=== PATIENT | male | born 1995 | race Caucasian/White ===

== ENCOUNTER 2022-04-15 12:45 | Emergency (ER) | payer OTHER, SELFPAY ==
[2022-04-15 14:29] LABS: Urine Blood Negative (Negative); Urine Glucose Negative (Negative); Urine Protein Negative (Negative); Urine Specific Gravity >=1.030 (1.005-1.030); Urine pH 5.5 (5.0-7.0)
--- NOTE | 2022-04-15 14:30 | EDPHYS ---
Physician Documentation [facility] Name: Hansel Kaba Age: 27 yrs Sex: Male : 1995 Arrival Date: 04/15/2022 Time: 12:49 Bed 10 Private MD: ED Physician Elliott Larose HPI: 04/15 14:30 This 27 yrs old Male presents to ER via Ambulatory with complaints of Back Pain. snw 14:30 The patient presents with pain that is acute, with no known mechanism of injury. The snw symptoms are located in the low back. Onset: The symptoms/episode began/occurred suddenly, 3 day(s) ago, and became persistent. The pain radiates to the right leg and left leg. Associated signs and symptoms: Pertinent positives: headache, low grade temp. Severity of symptoms: At their worst the symptoms were moderate. The patient has not experienced similar symptoms in the past. The patient has been recently seen by a physician: with similar presenting complaints. Historical: - Allergies: 13:13 No Known Allergies; eh3 - Home Meds: 13:13 None [Active]; eh3 - PMHx: 13:13 None; eh3 - PSHx: 13:13 None; eh3 - Immunization history:: Adult Immunizations up to date. - Social history:: Smoking status: Patient reports the use of cigarette tobacco products, smokes one pack cigarettes per day. Patient/guardian denies using alcohol, street drugs. ROS: 14:27 Constitutional: Negative for fever, chills, and weight loss. snw 14:27 Eyes: Negative for injury, pain, redness, and discharge, ENT: Negative for injury, pain, and discharge, Neck: Negative for injury, pain, and swelling, Cardiovascular: Negative for chest pain, palpitations, and edema, Respiratory: Negative for shortness of breath, cough, wheezing, and pleuritic chest pain, Abdomen/GI: Negative for abdominal pain, nausea, vomiting, diarrhea, and constipation. 14:27 : Negative for injury, bleeding, discharge, and swelling, MS/Extremity: Negative for injury and deformity, Skin: Negative for injury, rash, and discoloration, Neuro: Negative for headache, weakness, numbness, tingling, and seizure, Psych: Negative for depression, anxiety, suicide ideation, homicidal ideation, and hallucinations. 14:27 Constitutional: Positive for body aches, fever, malaise. 14:27 Back: Positive for pain at rest, pain with movement, of the left low back, left mid back, right mid back and right low back. Exam: 14:27 Constitutional: This is a well developed, well nourished patient who is awake, alert, snw and in no acute distress. Head/Face: Normocephalic, atraumatic. Eyes: Pupils equal round and reactive to light, extra-ocular motions intact. Lids and lashes normal. Conjunctiva and sclera are non-icteric and not injected. Cornea within normal limits. Periorbital areas with no swelling, redness, or edema. ENT: Nares patent. No nasal discharge, no septal abnormalities noted. Tympanic membranes are normal and external auditory canals are clear. Oropharynx with no redness, swelling, or masses, exudates, or evidence of obstruction, uvula midline. Mucous membranes moist. Neck: Trachea midline, no thyromegaly or masses palpated, and no cervical lymphadenopathy. Supple, full range of motion without nuchal rigidity, or vertebral point tenderness. No Meningismus. Chest/axilla: Normal chest wall appearance and motion. Nontender with no deformity. No lesions are appreciated. Cardiovascular: Regular rate and rhythm with a normal S1 and S2. No gallops, murmurs, or rubs. Normal PMI, no JVD. No pulse deficits. Respiratory: Lungs have equal breath sounds bilaterally, clear to auscultation and percussion. No rales, rhonchi or wheezes noted. No increased work of breathing, no retractions or nasal flaring. Abdomen/GI: Soft, non-tender, with normal bowel sounds. No distension or tympany. No guarding or rebound. No evidence of tenderness throughout. Back: No spinal tenderness. No costovertebral tenderness. Full range of motion. Skin: Warm, dry with normal turgor. Normal color with no rashes, no lesions, and no evidence of cellulitis. MS/ Extremity: Pulses equal, no cyanosis. Neurovascular intact. Full, normal range of motion. Neuro: Awake and alert, GCS 15, oriented to person, place, time, and situation. Cranial nerves II-XII grossly intact. Motor strength 5/5 in all extremities. Sensory grossly intact. Cerebellar exam normal. Normal gait. Vital Signs: 13:08 BP 129 / 96; Pulse 68; Resp 16; Temp 99.4; Pulse Ox 99% on R/A; Weight 115.67 kg; ld1 Height 5 ft. 11 in. (180.34 cm); Pain 0/10; 13:08 Body Mass Index 35.56 (115.67 kg, 180.34 cm) ld1 MDM: 14:12 Patient medically screened. snw 14:30 Data reviewed: vital signs, nurses notes. Counseling: I had a detailed discussion with snw the patient and/or guardian regarding: the historical points, exam findings, and any diagnostic results supporting the discharge/admit diagnosis, the presence of at least one elevated blood pressure reading (>120/80) during this emergency department visit, lab results. 04/15 13:58 Order name: SARS-COV-2 RT PCR (Document "Date of Onset" if Symptomatic) snw 04/15 14:30 Order name: Urine Dipstick-Ancillary; Complete Time: 14:32 EDMS 04/15 13:58 Order name: Urine Dipstick-Ancillary (obtain specimen); Complete Time: 14:28 snw Administered Medications: No medications were administered Disposition: 04/16 09:04 Co-signature as Attending Physician, Elliott Larose MD I agree with the assessment and kdr plan of care. Disposition Summary: 04/15/22 14:29 Discharge Ordered Location: Home snw Condition: Stable snw Diagnosis - Low back pain snw - Headache snw Followup: snw - With: Emergency Department - When: As needed - Reason: Worsening of condition Followup: snw - With: Private Physician - When: 1 - 2 days - Reason: Recheck today's complaints, Continuance of care, Re-evaluation by your physician Discharge Instructions: - Discharge Summary Sheet snw - General Headache Without Cause snw - Hypertension, Adult snw - Musculoskeletal Pain snw - Rehydration, Adult snw - Heat Therapy snw - Form - Blood Pressure Record Sheet snw - How to Take Your Blood Pressure snw - Form - Excuse from Work, School, or Physical Activity snw Forms: - Medication Reconciliation Form snw - Thank You Letter snw - Work release form snw - Antibiotic Education snw - Prescription Opioid Use snw Prescriptions: - Diclofenac Sodium 75 mg Oral Tablet Sustained Release - take 1 tablet by ORAL route 2 times per day; 30 tablet; Refills: 0, Product snw Selection Permitted - orphenadrine citrate 100 mg Oral Tablet Sustained Release - take 1 tablet by ORAL route 2 times per day As needed; 20 tablet; Refills: 0, snw Product Selection Permitted Signatures: Dispatcher [employer] Elliott Austin MD MD kdr Waters, Shelly, FNP-Frannie JACKMAN-Abby Ulloa [facility]
--- NOTE | 2022-04-15 14:30 | ER ---
Nurse's Notes [facility] Name: Hansel Kaba Age: 27 yrs Sex: Male : 1995 Arrival Date: 04/15/2022 Time: 12:49 Bed 10 Private MD: Diagnosis: Low back pain;Headache Presentation: 04/15 13:08 Chief complaint: Patient states: H/A and lower back radiating to hips and knees, ld1 started Tuesday. Coronavirus screen: Vaccine status: Patient reports being unvaccinated. Ebola Screen: No symptoms or risks identified at this time. Initial Sepsis Screen: Does the patient meet any 2 criteria? No. Patient's initial sepsis screen is negative. Does the patient have a suspected source of infection? No. Patient's initial sepsis screen is negative. Risk Assessment: Do you want to hurt yourself or someone else? Patient reports no desire to harm self or others. Onset of symptoms was April 12, 2022. 13:08 Method Of Arrival: Ambulatory ld1 13:08 Acuity: AMANDA 3 ld1 Triage Assessment: 13:13 General: Appears in no apparent distress. comfortable, Behavior is calm, cooperative, eh3 appropriate for age. Pain: Complains of pain in top of head, right eye, left eye, left side of the back of head and right side of the back of head Pain does not radiate. Pain currently is 4 out of 10 on a pain scale. at worst was 10 out of 10 on a pain scale. Quality of pain is described as aching, Pain began 4 days ago Is continuous. Neuro: Level of Consciousness is awake, alert, obeys commands, Oriented to person, place, time, situation. Cardiovascular: Capillary refill < 3 seconds Patient's skin is warm and dry. Respiratory: Airway is patent Respiratory effort is even, unlabored. Musculoskeletal: Capillary refill < 3 seconds, Range of motion: intact in all extremities. Historical: - Allergies: 13:13 No Known Allergies; eh3 - Home Meds: 13:13 None [Active]; eh3 - PMHx: 13:13 None; eh3 - PSHx: 13:13 None; eh3 - Immunization history:: Adult Immunizations up to date. - Social history:: Smoking status: Patient reports the use of cigarette tobacco products, smokes one pack cigarettes per day. Patient/guardian denies using alcohol, street drugs. Screenin:41 Abuse screen: Denies threats or abuse. Denies injuries from another. Nutritional ss screening: No deficits noted. Tuberculosis screening: Never had TB. Fall Risk None identified. Assessment: 14:28 Reassessment: PT states, "I really just wanted a clearance to go back to work. I feel ss fine. 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 NIKHIL Wilson notified and states ok to discharge. General: Appears in no apparent distress. comfortable, Behavior is calm, cooperative. Neuro: Level of Consciousness is awake, alert, obeys commands, Oriented to person, place, time, situation. Cardiovascular: Capillary refill < 3 seconds is brisk in bilateral fingers. Respiratory: Airway is patent Respiratory effort is even, unlabored, Respiratory pattern is regular, symmetrical. Derm: Skin is intact, is healthy with good turgor, Skin is dry, Skin is pink, warm \\T\\ dry. normal. Musculoskeletal: Circulation, motion, and sensation intact. Range of motion: intact in all extremities, Swelling absent. Vital Signs: 13:08 BP 129 / 96; Pulse 68; Resp 16; Temp 99.4; Pulse Ox 99% on R/A; Weight 115.67 kg; ld1 Height 5 ft. 11 in. (180.34 cm); Pain 0/10; 13:08 Body Mass Index 35.56 (115.67 kg, 180.34 cm) ld1 ED Course: 12:49 Patient arrived in ED. rg4 13:11 Triage completed. ld1 13:13 Arm band placed on right wrist. eh3 13:40 Katie Chavez FNP-C is PHCP. snw 13:40 Elliott Larose MD is Attending Physician. snw 14:13 Daphnie Jacobson, DUONG is Primary Nurse. ss 14:41 Patient has correct armband on for positive identification. ss 14:41 No provider procedures requiring assistance completed. Patient did not have IV access ss during this emergency room visit. Administered Medications: No medications were administered Outcome: 14:29 Discharge ordered by . snw 14:41 Discharged to home ambulatory. ss 14:41 Condition: good 14:41 Discharge instructions given to patient, family, Instructed on discharge instructions, follow up and referral plans. medication usage, Demonstrated understanding of instructions, follow-up care, medications, Prescriptions given X 2. 14:41 Patient left the ED. Signatures: Katie Chavez, MECHANICAL LEAD-C MECHANICAL LEAD-Csnw Daphnie Jacobson RN RN ss Bruna Deras rg4 Ingris Jonas RN RN ld1 Abby Barraza 3
[2022-04-15 14:53] VITALS: BP 129/96; TEMP 99.4; O2SAT 99
== END 2022-04-15 14:41 | disposition home or self-care (01) ==
LOC: ER 12:45
DX: U07.1 COVID-19 (principal); M54.50 Low back pain, unspecified; F17.210 Nicotine dependence, cigarettes, uncomplicated
CPT/HCPCS: 81003; 99282; U0003